=== PATIENT | male | born 2000 | race Caucasian/White ===

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

== ENCOUNTER 2022-11-11 08:43 | Emergency (ER) | payer MEDICAID ==
[~2022-11-11] VITALS: Ht 162.6 cm; Wt 68.2 kg
[2022-11-11 08:48] VITALS: BP 129/58; PULSE 60; RESP 18; TEMP 97.7
[2022-11-11] MEDS ORDERED: NEOMYCIN/POLYMYXIN B/HYDROCORT 10 ML OTIC SUSPENSION AD ONE (10:00)
[2022-11-11] MEDS ORDERED: AMOX500C2 PO (10:05)
== END 2022-11-11 10:16 | disposition home or self-care (01) ==
LOC: EMS 08:43
DX: H60.91 Unspecified otitis externa, right ear (principal); H66.91 Otitis media, unspecified, right ear
CPT/HCPCS: 99283